=== PATIENT | male | born 1965 | race African-American/Black ===

== ENCOUNTER 2017-11-24 13:14 | Emergency (ER) | payer OTHER, MEDICAID ==
[2017-11-24] MEDS: MULTIVIT INFUSN,ADULT 4,VIT K 10 ML, THIAMINE 100 MG, FOLIC ACID 1 MG in IV NORMAL SALI... IV ×2 (13:30→14:40)
[2017-11-24 14:16] LABS: ANION GAP 18 (6-14); BLOOD UREA NITROGEN 8 mg/dL (8-26); CALCIUM 9.5 mg/dL (8.5-10.1); CARBON DIOXIDE 24 mmol/L (21-32); CHLORIDE 101 mmol/L (98-107); CREATININE 0.7 mg/dL (0.7-1.3); GFR 144.4; GLUCOSE 81 mg/dL (70-99); POTASSIUM 4.7 mmol/L (3.5-5.1); SODIUM 143 mmol/L (136-145)
[2017-11-24 14:25] LABS: ALBUMIN 4.2 g/dL (3.4-5.0); ALK PHOS 122 U/L (46-116); ALT (SGPT) 35 U/L (16-63); AST (SGOT) 50 U/L (15-37); DIRECT BILIRUBIN < 0.1 mg/dL (0.0-0.2); LIPASE 167 U/L (73-393); MAGNESIUM 2.2 mg/dL (1.8-2.4); TOTAL BILIRUBIN 0.5 mg/dL (0.2-1.0); TOTAL PROTEIN 8.7 g/dL (6.4-8.2)
[2017-11-24 14:28] LABS: ETHANOL 308 mg/dL (0-10)
[2017-11-24 14:37] LABS: CKMB INDEX 0.2 % (0-4); CKMB MASS 1.2 ng/mL (0.0-3.6); CREATINE KINASE 658 U/L (39-308)
[2017-11-24 14:37] LABS: NT-PRO BNP 10 pg/mL (0-124)
[2017-11-24 14:38] LABS: TROPONINI < 0.017 ng/mL (0.000-0.055)
[2017-11-24 15:00] LABS: ADD MAN DIFF? NO
[2017-11-24 15:05] LABS: BASO % 0 % (0-3); EOS % 0 % (0-3); HEMATOCRIT 41.7 % (39.0-53.0); HEMOGLOBIN 13.9 g/dL (13.0-17.5); LYMPH # 1.6 x10^3/uL (1.0-4.8); LYMPH % 25 % (24-48); MEAN CORPUSCULAR HEMOGLOBIN 32 pg (25-35); MEAN CORPUSCULAR HGB CONC 33 g/dL (31-37); MEAN CORPUSCULAR VOLUME 95 fL (79-100); MONO # 0.6 x10^3/uL (0.0-1.1); MONO % 9 % (0-9); NEUT # 4.2 x10^3uL (1.8-7.7); NEUT % 66 % (31-73); PLATELET COUNT 366 x10^3/uL (140-400); RED BLOOD COUNT 4.41 x10^6/uL (4.30-5.70); RED CELL DISTRIBUTION WIDTH 16.5 % (11.5-14.5); WHITE BLOOD COUNT 6.4 x10^3/uL (4.0-11.0)
[2017-11-24 15:28] LABS: BILIRUBIN,URINE NEGATIVE (NEG); COLOR,URINE YELLOW; GLUCOSE,URINE NEGATIVE (NEG); NITRITE,URINE NEGATIVE (NEG); PH,URINE 5.5; PROTEIN,URINE NEGATIVE (NEG-TRACE); UROBILINOGEN,URINE 0.2 mg/dL (0.2 mg/dL)
[2017-11-24 15:36] LABS: BARBITURATES NEG (NEG); BENZODIAZEPINES NEG (NEG); CANNABINOIDS NEG (NEG); COCAINE NEG (NEG); METHADONE NEG (NEG); OPIATES NEG (NEG); PHENCYCLIDINE NEG (NEG)
[2017-11-24 15:38] LABS: CLARITY,URINE CLEAR
[2017-11-24 15:39] LABS: AMPHETAMINE/METHAMPHETAMINE NEG (NEG); BACTERIA,URINE 0 /HPF (0-FEW); ETHANOL, URINE POS (NEG); RBC,URINE 0 /HPF (0-2); SQUAMOUS EPITHELIAL CELL,UR FEW /LPF; WBC,URINE OCC /HPF (0-4)
== END 2017-11-24 17:52 | disposition home or self-care (01) ==
LOC: ER 13:14
DX: S00.12XA Contusion of left eyelid and periocular area, initial encounter (principal); S00.01XA Abrasion of scalp, initial encounter; F10.229 Alcohol dependence with intoxication, unspecified; M25.551 Pain in right hip; Y90.8 Blood alcohol level of 240 mg/100 ml or more; X58.XXXA Exposure to other specified factors, initial encounter; Y93.89 Activity, other specified; Y92.89 Other specified places as the place of occurrence of the external cause; Y99.2 Volunteer activity
CPT/HCPCS: 36415; 70450; 70486; 71045; 72125; 80048; 80076; 80307; 81001; 82553; 83690; 83735; 83880; 84484; 85025; 93005; 96365; 99285-25; G0480; J7030

== ENCOUNTER 2019-09-29 20:14 | Emergency (ER) | payer OTHER ==
[~2019-09-29] VITALS: Ht 170.2 cm; Wt 59.0 kg
[~2019-09-29 20:14] MED LIST: LORA-434 PO; MULT1TAB90 PO; TRAZ-118 PO
[2019-09-29 21:19] VITALS: BP 101/81
--- NOTE | 2019-09-29 21:53 | PHYS DOC ---
Past Medical History Past Medical History: Alcoholism, Unknown Past Surgical History: Other Additional Past Surgical Histo: UNKNOWN Alcohol Use: Heavy Drug Use: Other Adult General Chief Complaint Chief Complaint: ALCOHOL INTOXICATION HPI HPI 53-year-old male presents to the emergency department via EMS with complaints of right groin pain. Patient has underlying history of inguinal hernia with repair and mesh. He states he had pain in this area and a bulge however this is subsequently resolved. Patient is acutely intoxicated. He denies any complaints of chest pain, shortness breath, nausea, vomiting, abdominal pain. Patient is tolerating by mouth intake at this time without difficulty. Nothing makes his symptoms worse, nothing makes his symptoms better. Review of Systems Review of Systems Constitutional: Denies fever or chills [] Respiratory: Denies cough or shortness of breath [] Cardiovascular: No additional information not addressed in HPI [] GI: Denies abdominal pain, nausea, vomiting, bloody stools or diarrhea [] : right groin pain with hernia Musculoskeletal: Denies back pain or joint pain [] Neurologic: Denies headache, focal weakness or sensory changes [] All other systems were reviewed and found to be within normal limits, except as documented in this note. Allergies Allergies Allergies Coded Allergies Type Severity Reaction Last Updated Verified No Known Drug Allergies 10/28/17 No Physical Exam Physical Exam Constitutional: Well developed, well nourished, no acute distress, non-toxic appearance. [] HENT: Normocephalic, atraumatic, bilateral external ears normal, oropharynx moist, no oral exudates, nose normal. [] Cardiovascular:Heart rate regular rhythm, no murmur [] Lungs & Thorax: Bilateral breath sounds clear to auscultation [] Abdomen: Bowel sounds normal, soft, no tenderness, no masses, no pulsatile masses, groin without evidence of hernia on exam, normal testicular exam [] Skin: Warm, dry, no erythema, no rash. [] Extremities: No tenderness, no edema. [] Neurologic: Alert and oriented X 3, no focal deficits noted. [] Psychologic: Affect normal, judgement normal, mood normal. [] Current Patient Data Vital Signs Vital Signs Date Time Temp Pulse Resp B/P (MAP) Pulse Ox O2 Delivery O2 Flow Rate FiO2 09/29/19 21:19 76 101/81 (88) 100 Room Air 09/29/19 20:14 98.1 18 98.1 EKG EKG [] Radiology/Procedures Radiology/Procedures [] Course & Med Decision Making Course & Med Decision Making Pertinent Labs and Imaging studies reviewed. (See chart for details) [] 53-year-old male presents to the emergency department via EMS with complaints of right groin pain. Patient has underlying history of inguinal hernia with repair and mesh. He states he had pain in this area and a bulge however this is subsequently resolved. Patient is acutely intoxicated. He denies any complaints of chest pain, shortness breath, nausea, vomiting, abdominal pain. Patient is tolerating by mouth intake at this time without difficulty. Nothing makes his symptoms worse, nothing makes his symptoms better. Patient kept in the ER for observation Recommend dc home with follow up with PCP Patient resting comfortably. Return precautions provided Dragon Disclaimer Dragon Disclaimer This electronic medical record was generated, in whole or in part, using a voice recognition dictation system. Departure Departure Impression: Primary Impression: Alcohol intoxication Disposition: 01 HOME, SELF-CARE Condition: STABLE Referrals: UNKNOWN PCP NAME (PCP) Patient Instructions: Alcohol Intoxication, [id number] Additional Instructions: Recommend follow up with PCP 3 - 5 days Return to the ER with worsening symptoms, intractable pain, fever, altered m ental status Tylenol/Motrin as needed for pain Problem Qualifiers Primary Impression: Alcohol intoxication Complication of substance-induced condition: uncomplicated Qualified Codes: F10.920 - Alcohol use, unspecified with intoxication, uncomplicated MATT WHITESIDE MD Sep 29, 2019 21:53
== END 2019-09-30 01:07 | disposition home or self-care (01) ==
LOC: ER 20:14
DX: F10.229 Alcohol dependence with intoxication, unspecified (principal); R10.31 Right lower quadrant pain
CPT/HCPCS: 99284